=== PATIENT | male | born 1950 | race Caucasian/White ===

== ENCOUNTER 2020-05-24 06:30 | Observation (INO) | payer MEDICARE, BC ==
[~2020-05-24] VITALS: Ht 188 cm; Wt 120.0 kg
[2020-05-24] MEDS ORDERED: SODIUM CHLORIDE 0.9% 1,000 ML IV SCH ×2 (07:00)
[2020-05-24 07:06] VITALS: BP 154/86
[2020-05-24] MEDS ORDERED: SIMV10TA18 PO (07:19)
[2020-05-24] MEDS ORDERED: MULT-658 PO (07:19)
[2020-05-24] MEDS ORDERED: LOSA50TA14 PO (07:19)
[2020-05-24] MEDS ORDERED: APIX5TAB PO (07:19)
[2020-05-24] MEDS ORDERED: OMEP-110 PO (07:19)
[2020-05-24] MEDS ORDERED: METO50TA82 PO (07:19)
[2020-05-24] MEDS ORDERED: FENTANYL PF 250 MCG/5ML ONE (07:53)
[2020-05-24] MEDS ORDERED: MIDAZOLAM 1 MG/ML, 2ML ONE (07:53)
[2020-05-24] MEDS ORDERED: DEXAMETHASONE 4 MG/ML, 1ML ONE (07:56)
[2020-05-24] MEDS ORDERED: ROCURONIUM 10MG/ML,5ML ONE (07:56)
[2020-05-24] MEDS ORDERED: PROPOFOL 10 MG/ML, 20ML ONE (07:56)
[2020-05-24] MEDS ORDERED: EPHEDRINE 50 MG/ML, 1ML ONE (08:00)
[2020-05-24] MEDS ORDERED: SUGAMMADEX 200 MG/2 ML IVPush ONE (08:00)
[2020-05-24 08:02] LABS: ANION GAP 5 mmol/L (5-15); CALCIUM 8.7 mg/dL (8.5-10.1); CHLORIDE 109 mmol/L (98-107)
[2020-05-24 08:07] LABS: BASOPHILS % (AUTO) 0 % (0-1); EOSINOPHILS % (AUTO) 3 % (1-7); LYMPHOCYTES % (AUTO) 20 % (22-44); MEAN CORPUSCULAR HEMOGLOBIN 30.2 pg (27.5-34.5); MEAN CORPUSCULAR HGB CONC 33.8 g/dL (33.2-36.2); MEAN PLATELET VOLUME 8.3 fL (7.4-10.4); MONOCYTES % (AUTO) 9 % (2-9); NEUTROPHILS % (AUTO) 68 % (42-75); PLATELET COUNT 210 x10^3/uL (130-400); RED BLOOD COUNT 5.22 x10^6/uL (4.38-5.82); RED CELL DISTRIBUTION WIDTH 13.4 % (9.4-14.8)
[2020-05-24 08:09] LABS: MD NO
[2020-05-24] MEDS ORDERED: HEPARIN 1,000 UNITS/ML, 10ML ONE ×3 (08:59)
[2020-05-24] MEDS ORDERED: ONDANSETRON 2MG/ML, 2ML ONE ×3 (11:37)
[2020-05-24] MEDS ORDERED: HYDROmorphone 1 MG/ML, 1ML INJ IVPush PRN (12:00)
[2020-05-24] MEDS ORDERED: LABETALOL 5MG/ML, 20ML IV PRN (12:00)
[2020-05-24] MEDS ORDERED: OXYcodone 5 MG/5 ML ORAL.SOL UDC PO PRN (12:00)
[2020-05-24] MEDS ORDERED: ZOLPIDEM 5MG TABLET PO PRN (12:00)
[2020-05-24] MEDS ORDERED: MIDAZOLAM 1 MG/ML, 2ML IV PRN (12:00)
[2020-05-24] MEDS ORDERED: DIPHENHYDRAMINE 50 MG/ML, 1ML IVPush PRN ×2 (12:00)
[2020-05-24] MEDS ORDERED: FENTANYL PF 100 MCG/2ML IV PRN (12:00)
[2020-05-24] MEDS: APIXABAN 5 MG TABLET PO SCH ×2 (12:00→20:38)
[2020-05-24] MEDS ORDERED: ALBUTEROL SULFATE 2.5 MG/3 ML NPPB PRN (12:00)
[2020-05-24] MEDS ORDERED: hydrALAzine 20 MG/ML, 1ML IV PRN (12:00)
[2020-05-24] MEDS ORDERED: MEPERIDINE/PF 25MG/0.5ML IVPush PRN (12:00)
[2020-05-24] MEDS ORDERED: ONDANSETRON 2MG/ML, 2ML IVPush PRN ×2 (12:00)
[2020-05-24] MEDS ORDERED: PROMETHAZINE 12.5 MG SUPP PR PRN (12:00)
[2020-05-24] MEDS ORDERED: APIXABAN 5 MG TABLET PO SCH (12:00)
[2020-05-24] MEDS ORDERED: PROMETHAZINE 25 MG/ML, 1ML IVPush PRN (12:00)
[2020-05-24] MEDS ORDERED: EPHEDRINE 50 MG/ML, 1ML IVPush PRN (12:00)
[2020-05-24] MEDS ORDERED: ACETAMINOPHEN 325 MG TABLET PO PRN (12:00)
[2020-05-24] MEDS ORDERED: DIAZEPAM 5 MG/ML, 2ML IVPush PRN (12:00)
[2020-05-24] MEDS ORDERED: APIXABAN 5 MG TABLET ONE (12:44)
[2020-05-24] MEDS ORDERED: OXYcodone 5 MG/5 ML ORAL.SOL UDC ONE (13:48)
[2020-05-24 14:20] VITALS: BP 106/71
[2020-05-24 20:15] VITALS: BP 123/77
[2020-05-24] MEDS: SIMVASTATIN 10 MG TABLET PO SCH (20:38)
[2020-05-24] MEDS: COLCHICINE 0.6 MG CAPSULE PO SCH (20:38)
[2020-05-25] VITALS (7 sets, daily range): BP systolic 112–142; BP diastolic 68–79
[2020-05-25] MEDS: ACETAMINOPHEN 325 MG TABLET PO PRN ×4 (03:42→23:17)
[2020-05-25] MEDS: OMEPRAZOLE 20 MG CAPSULE.DR PO SCH (08:09)
[2020-05-25] MEDS: MULTIVITAMIN 1 TABLET PO SCH (08:09)
[2020-05-25] MEDS: COLCHICINE 0.6 MG CAPSULE PO SCH ×2 (08:09→20:30)
[2020-05-25] MEDS: APIXABAN 5 MG TABLET PO SCH ×2 (08:09→20:30)
[2020-05-25] MEDS: LOSARTAN 50MG TABLET PO SCH (08:10)
[2020-05-25] MEDS ORDERED: KETOROLAC 30 MG/1 ML IVPush ONE (09:30)
[2020-05-25] MEDS: SOTALOL 80MG TABLET PO SCH ×2 (10:55→18:26)
[2020-05-25] MEDS: SIMVASTATIN 10 MG TABLET PO SCH (20:30)
[2020-05-26 00:07] VITALS: BP 120/68
[2020-05-26] MEDS ORDERED: KETOROLAC 30 MG/1 ML IVPush ONE (01:30)
[2020-05-26] MEDS: SOTALOL 80MG TABLET PO SCH (05:45)
[2020-05-26 07:07] VITALS: BP 126/80
[2020-05-26] MEDS: MULTIVITAMIN 1 TABLET PO SCH (08:25)
[2020-05-26] MEDS: COLCHICINE 0.6 MG CAPSULE PO SCH (08:25)
[2020-05-26] MEDS: APIXABAN 5 MG TABLET PO SCH (08:26)
[2020-05-26] MEDS: LOSARTAN 50MG TABLET PO SCH (08:26)
[2020-05-26] MEDS: OMEPRAZOLE 20 MG CAPSULE.DR PO SCH (08:26)
[2020-05-26] MEDS ORDERED: COLC0.6C3 PO (09:11)
[2020-05-26] MEDS ORDERED: ACET325T26 PO (09:11)
[2020-05-26] MEDS ORDERED: SOTA80TA18 PO (09:11)
== END 2020-05-26 11:41 | disposition home or self-care (01) ==
LOC: CACL 06:30 → ORIP 11:50 → 5SO 14:08 → DCLOUNGE 05-26 11:37
PROVIDERS: ADMIT Internal Medicine Cardiovascular Disease; ATTEND Internal Medicine Cardiovascular Disease
DX: I48.91 Unspecified atrial fibrillation (principal); Z20.822 Contact with and (suspected) exposure to COVID-19; I48.4 Atypical atrial flutter; D68.69 Other thrombophilia; I10 Essential (primary) hypertension; G89.18 Other acute postprocedural pain; R07.81 Pleurodynia; F17.290 Nicotine dependence, other tobacco product, uncomplicated; Z79.01 Long term (current) use of anticoagulants; Z79.899 Other long term (current) drug therapy
CPT/HCPCS: 36415; 71046; 80048; 85025; 85347; 93005; 93306; 93312; 93321; 93325; 93613; 93655; 93656; 93657; 93662; 96374; 96376; C1730; C1732; C1759; C1766; C1893; C1894; G0378; J1100; J1644; J1885; J2250; J2405; J2704; J3010; U0003